=== PATIENT | male | born 2000 | race Caucasian/White ===

== ENCOUNTER → 2021-04-20 | Outpatient (CLI) | payer OTHER | LOC: LAB SHORT 15:31 | PROVIDERS: Family Medicine | DX: Z11.3 Encounter for screening for infections with a predominantly sexual mode of transmission (principal); N04.0 Nephrotic syndrome with minor glomerular abnormality | CPT/HCPCS: 82570 ==

== ENCOUNTER → 2021-04-26 | Outpatient (CLI) | payer OTHER ==
[2021-04-26 16:56] LABS: Protein, Urine Quantitative 559.9 mg/dL (0.0-11.9)
== END | disposition home or self-care (01) ==
LOC: LAB 13:45 → LAB SHORT 13:45
PROVIDERS: Internal Medicine
DX: N05.0 Unspecified nephritic syndrome with minor glomerular abnormality (principal)
CPT/HCPCS: 81050; 82570; 84156